=== PATIENT | female | born 1980 | race African-American/Black ===

== ENCOUNTER 2017-06-16 00:59 | Emergency (ER) | payer OTHER ==
--- NOTE | 2017-06-16 01:07 | ER Document Report ---
ED Psych Disorder / Suicide - General Mode of Arrival: Medic Information source: Patient TRAVEL OUTSIDE OF THE U.S. IN LAST 30 DAYS: No <AUNDREAKEESHA Shavon - Last Filed: 06/16/17 01:12> <BRENDAN MALDONADO - Last Filed: 06/17/17 15:30> <VICENTE CARUSO - Last Filed: 06/17/17 17:06> - General Chief Complaint: Psych Problem Stated Complaint: SUICIDAL IDEATION Time Seen by Provider: 06/16/17 01:00 - HPI Notes: 37-year-old female with history of depression presents with worsening depression and suicidal ideation. She had a plan of using a gun but she states she got rid of her gone and is seeking help for this. She says her multiple precipitating factors did not want to discuss this which seems appropriate as she is currently in a hallway bed with a full emergency department. She states she has had prior suicidal attempt. She is usually on sertraline but is not currently on this. She denies any physical problems. Specifically no chest pain cough cold symptoms rhinorrhea sore throat breathing difficulty nausea vomiting diarrhea or other illness. Denies any pain. No suicide attempt at this time has been made. She does admit to drinking beer and did drink some tonight as well. (KEESHA GUILLAUME) - Related Data Allergies/Adverse Reactions: No Known Allergies Allergy (Verified 11/25/11 15:31) Past Medical History - Social History Smoking Status: Current Every Day Smoker Frequency of alcohol use: Occasional Family History: Reviewed & Not Pertinent Past Surgical History: Reports: Hx Appendectomy, Hx Section, Hx Cholecystectomy, Hx Orthopedic Surgery - rt shoulder - Immunizations Hx Diphtheria, Pertussis, Tetanus Vaccination: Yes - 06/2011 <AUNDREAKEESHA Shavon - Last Filed: 06/16/17 01:12> Review of Systems - Review of Systems -: Yes All other systems reviewed and negative <KEESHA GUILLAUME - Last Filed: 06/16/17 01:12> Physical Exam <KEESHA GUILLAUME - Last Filed: 06/16/17 01:12> <BRENDAN MALDONADO - Last Filed: 06/17/17 15:30> <VICENTE CARUSO - Last Filed: 06/17/17 17:06> - Vital signs Vitals: Temp Pulse Resp BP Pulse Ox 98.6 F 96 16 124/71 94 06/16/17 00:59 06/16/17 00:59 06/16/17 00:59 06/16/17 00:59 06/16/17 00:59 Notes: Please see nurse's note (KEESHA GUILLAUME) - Notes Notes: GENERAL: VS as per nursing doc. Well-appearing, well-nourished and in no acute distress. HEAD: Atraumatic, normocephalic EYES: Pupils equal round and reactive to light, extraocular movements intact, sclera anicteric, no conjunctival injection or discharge. ENT: Nares patent, oropharynx clear without exudates, moist mucous membranes. NECK: Normal range of motion, supple without lymphadenopathy. LUNGS: Breath sounds clear to auscultation bilaterally and equal. No wheezes rales or rhonchi. HEART: Regular rate and rhythm without murmurs. Peripheral pulses equal. ABDOMEN: Soft, non-tender. BACK: Normal to inspection EXTREMITIES: Normal appearance without edema. NEUROLOGICAL: Cranial nerves grossly intact. Normal speech. Normal sensory and motor exams. No gross cerebellar abnormalities. PSYCH: Oriented 3. Somewhat monotone speech. Fairly poor eye contact. Appears depressed. Calm, directable. No evidence of hallucinations or delusions. No reported homicidal ideation. Normal thought content. Good insight. Speech is appropriate. SKIN: Warm, dry. No lacerations. (KEESHA GUILLAUME) Course - EKG Interpretation by [facility] EKG shows normal: Sinus rhythm - Rate 96, normal QRS, no significant STT abnormalities. Normal EKG. <KEESHA GUILLAUME - Last Filed: 06/16/17 01:12> - Laboratory Result Diagrams: 06/16/17 01:15 06/16/17 01:15 <BRENDAN MALDONADO - Last Filed: 06/17/17 15:30> - Laboratory Result Diagrams: 06/16/17 01:15 06/16/17 01:15 <VICENTE CARUSO - Last Filed: 06/17/17 17:06> - Vital Signs Vital signs: Temp Pulse Resp BP Pulse Ox 98.1 F 82 20 122/75 100 06/17/17 04:42 06/17/17 04:42 06/17/17 04:42 06/17/17 04:42 06/17/17 04:42 - Laboratory Laboratory results interpreted by me: 06/16/17 06/16/17 01:15 02:13 Sodium 146.6 H Chloride 110 H Urine Blood MODERATE H Salicylates < 1.0 L Acetaminophen < 10 L Discharge <KEESHA GUILLAUME - Last Filed: 06/16/17 01:12> <BRENDAN MALDONADO - Last Filed: 06/17/17 15:30> <VICENTE CARUSO - Last Filed: 06/17/17 17:06> - Discharge Clinical Impression: PTSD (post-traumatic stress disorder) Condition: Stable Disposition: HOME, SELF-CARE Additional Instructions: Post-Traumatic Stress Disorder You seem to have post-traumatic stress disorder (PTSD). PTSD can cause chronic anxiety, sleeping problems, social withdrawal, and drug abuse. It can occur following a traumatic personal experience such as an accident, rape, assault, or of a loved one, or after experiencing a war or natural disaster. Symptoms may be delayed for days or even years. Emotional numbing, the inability to express grief, is usually the earliest sign. There may be apathy or agitation, aggression, and inability to perform ordinary tasks. Often there are frightening nightmares and sudden, intruding memories of the trauma. Panic attacks and feelings of guilt are common. Alcohol and drug use make post- traumatic stress symptoms worse. Medication may be temporarily necessary to combat anxiety, panic attacks, and depression. Medicine should not be considered a "cure." You must deal with the trauma and prepare to go on. Group therapy is often helpful. This helps you "talk through" the problem with others who share your symptoms. We can provide you with an appropriate referral. DEPRESSION: Your evaluation reveals that you have mental depression. While symptoms may be vague, they often include disturbance of sleep, fatigue, loss of appetite , and general loss of interest in life. While depression may be a side effect of drugs, or a reaction to a major change in your life, many cases have no known cause. If depression is acute, and related to a major loss in your life, you can expect it to clear completely with time. If you have been depressed a long time , are prone to repeated bouts of depression or low mood, or have been thinking of suicide, get help. Depression can be treated with anti-depressant medication and counselling. Long-term depression will often take a few weeks to clear, even with appropriate medication. Follow-up care is important. SUICIDAL IDEATION: Suicidal ideation is a common medical term for thoughts about suicide, which may be as detailed as a formulated plan, without the suicidal act itself. Although most people who undergo suicidal ideation do not commit suicide, some go on to make suicide attempts. The range of suicidal ideation varies greatly from fleeting to detailed planning, role playing, and unsuccessful attempts. While thoughts about suicide are common, most people do not carry out serious actions to commit suicide. Based upon your evaluation and discussion with you, we do not believe you are currently at risk to act upon your thoughts of suicide. You have agreed to return to the Emergency Department, at any time , if you feel inclined to act upon your suicidal thoughts. FOLLOW-UP CARE: Please follow-up with your outpatient mental health provider, [facility], on Monday for your continued outpatient mental health services. You have been provided prescriptions for Effexor 37.5 mg twice daily and BuSpar 5 mg twice daily; please take as prescribed. If you experience worsening or a significant change in your symptoms, notify the physician immediately or return to the Emergency Department at any time for re-evaluation. Prescriptions: Buspirone HCl [Buspar 5 mg Tablet] 1 tab PO BID #14 tab Venlafaxine HCl ER [Effexor Xr 37.5 mg Cap.sr] 37.5 mg PO BID #14 cap.sr.24h Forms: Return to School Referrals: [facility] [Provider Group] - 06/19/17
[2017-06-16 01:29] LABS: ABSOLUTE BASOPHILS # (AUTO) 0.1 10^3/uL (0.0-0.2); ABSOLUTE EOSINOPHILS # (AUTO) 0.2 10^3/uL (0.0-0.6); ABSOLUTE LYMPHOCYTES (AUTO) 2.9 10^3/uL (0.5-4.7); ABSOLUTE MONOCYTES (AUTO) 0.6 10^3/uL (0.1-1.4); ABSOLUTE NEUT (AUTO) 4.5 10^3/uL (1.7-8.2); BASOPHILS % (AUTO) 1.1 % (0-2); EOSINOPHILS % (AUTO) 2.6 % (0-6); HEMATOCRIT 44.5 % (36.0-47.0); HEMOGLOBIN 15.2 g/dL (12.0-15.5); LYMPHOCYTES % (AUTO) 34.4 % (13-45); MEAN CORPUSCULAR HEMOGLOBIN 31.3 pg (27.0-33.4); MEAN CORPUSCULAR HGB CONC 34.1 g/dL (32.0-36.0); MEAN CORPUSCULAR VOLUME 92 fl (80-97); MONOCYTES % (AUTO) 7.7 % (3-13); PLATELET COUNT 215 10^3/uL (150-450); RED BLOOD COUNT 4.85 10^6/uL (3.72-5.28); RED CELL DISTRIBUTION WIDTH 13.3 % (11.5-14.0); SEGMENTED NEUTROPHILS % (AUTO) 54.2 % (42-78); TOTAL CELLS COUNTED % (AUTO) 100 %; WHITE BLOOD COUNT 8.3 10^3/uL (4.0-10.5)
[2017-06-16 01:41] LABS: ALANINE AMINOTRANSFERASE 21 U/L (9-52); ALBUMIN 4.5 g/dL (3.5-5.0); ALCOHOL 160 mg/dL (NONE DETECTED); ALKALINE PHOSPHATASE 61 U/L (38-126); ANION GAP 15 (5-19); ASPARTATE AMINO TRANSFERASE 18 U/L (14-36); BILIRUBIN,DIRECT 0.3 mg/dL (0.0-0.4); BILIRUBIN,TOTAL 0.4 mg/dL (0.2-1.3); BLOOD UREA NITROGEN 10 mg/dL (7-20); CALCIUM 9.8 mg/dL (8.4-10.2); CARBON DIOXIDE 22 mmol/L (22-30); CHLORIDE 110 mmol/L (98-107); GLUCOSE 90 mg/dL (75-110); POTASSIUM 3.8 mmol/L (3.6-5.0); SODIUM 146.6 mmol/L (137-145); TOTAL PROTEIN 7.5 g/dL (6.3-8.2)
[2017-06-16 01:42] LABS: ACETAMINOPHEN < 10 ug/mL (10-30); SALICYLATE < 1.0 mg/dL (2.0-20.0)
[2017-06-16 02:50] LABS: APPEARANCE,URINE CLEAR; BILIRUBIN,URINE NEGATIVE (NEGATIVE); COLOR,URINE STRAW; GLUCOSE, URINE NEGATIVE (NEGATIVE); KETONES,URINE NEGATIVE (NEGATIVE); LEUKOCYTE ESTERASE,URINE NEGATIVE (NEGATIVE); NITRITE,URINE NEGATIVE (NEGATIVE); PROTEIN,URINE NEGATIVE (NEGATIVE); URINE SPECIFIC GRAVITY 1.001; UROBILINOGEN,URINE NEGATIVE mg/dL (<2.0)
[2017-06-16 02:56] LABS: URINE AMPHETAMINES SCREEN NEGATIVE; URINE BARBITURATES SCREEN NEGATIVE; URINE BENZODIAZEPINES SCREEN NEGATIVE; URINE COCAINE SCREEN NEGATIVE; URINE MARIJUANA (THC) SCREEN NEGATIVE; URINE METHADONE SCREEN NEGATIVE; URINE PHENCYCLIDINE SCREEN NEGATIVE
--- NOTE | 2017-06-16 09:48 | EKG REPORT ---
SEVERITY:- NORMAL ECG - SINUS RHYTHM : Confirmed by: Emperatriz Miller 16-Jun-2017 09:47:28
[2017-06-16] MEDS: BENZONATATE 100 MG CAPSULE PO PRN ×2 (13:28→20:25)
--- NOTE | 2017-06-16 16:52 | PSYCHOLOGICAL NOTE ---
Psych Note - Psych Note Psych Note: Reason for consult: Suicidal ideation Consent Permissions: Sister, Keri [phone] 37-year-old female with history of depression presents with worsening depression and suicidal ideation. She had a plan of using a gun but she states she got rid of her gone and is seeking help for this. She says her multiple precipitating factors did not want to discuss this which seems appropriate as she is currently in a hallway bed with a full emergency department. She states she has had prior suicidal attempt. She is usually on sertraline but is not currently on this. She denies any physical problems. Patient disclosed she has a "lot going on... I just do not know." She continues state that she wants to get back on her medication because she has been off of it for 2 months. She disclosed that she has court this morning and was concerned "small things just get to me." When asked why she has not been taking her medications she disclosed [facility] I do not know [facility]. " Her last appointment was in February at the local [facility] here in [place]. She states that she really needs to get back on her medication. When asked if she is feeling suicidal she states "not now." Patient was asked when the last time she felt suicidal and she stated "last night...I think it was just a thought." Patient's sister Keri disclosed the patient has diagnosed with PTSD and anxiety. She states that the patient was unable to [facility] and has been off for over a month, but the family just found out yesterday this was happening. Patient was supposed to go to a hearing for nonpayment of rent for her old apartment. She continued to state that in the past she would have always thought that the patient would never had suicidal ideation however yesterday she "failed her assessments... she wrote a note to a coworker and told her not to read it until after she went home from work." She continues state that a coworker immediately opened it and found that it was a suicide note. The coworker contacted Keri to let her know what she read so patient ran to the patient's home. She found the patient sitting on her couch crying. Clinician went back to patient to discuss suicide note. After some silence patient confirmed she wrote the note. She disclosed her plan was to shoot herself but that "the the police confiscated the weapon I think...I don't know where it is...I think they have it." Patient disclosed she is "just tired...I can't do it anymore." Behavioral health team attempted contact [place] [facility]; left messages Patient is alert and orientated to person, place, time and circumstance. Mood is dysphoric with flat affect. Patient endorses suicidal ideation with plans, means and wrote a note. Patient denies homicidal ideation. Delusions are absent behaviors congruent with intact reality based presentation i.e. organized , linear thinking. Eye contact is poor. Conversational speech is slow. Intellectual abilities appear to be within the average range. Attention and concentration is poor. Insight, judgment, impulse control is poor. 309.81 (F43.10) posttraumatic stress disorder per history provided by patient 311 (F32.9) unspecified depressive disorder Impression\\plan: Patient is recommended for IVC. Patient reported suicide note with plans in means. Patient is unable to confirm where the weapon is at this time. Patient will be reevaluated. Dr. Tuttle was consulted and the care management this patient; attending physician is in agreement her conditions and disposition.
[2017-06-16] MEDS: BUSPIRONE HCL 10 MG TABLET PO SCH (17:10)
[2017-06-16] MEDS ORDERED: NICOTINE 14 MG/24 HR PATCH.TD24 TD ONE (18:55)
--- NOTE | 2017-06-16 18:59 | ER Document Report ---
Doctor's Note Notes: 06/16/17 18:56 Initially patient denies suicidal ideation, thinks that if we just restart her medication she will feel better. After mental health clinician called and obtained collaterals on this patient we found out that the patient had actually written a suicide note and intends to shoot herself with a gun to which she already has access. Patient has been placed on involuntary commitment paperwork. Medications will be started in the form of Effexor 37.5 twice daily and BuSpar 5 mg twice daily. This is on the recommendation of the [facility] psychiatrist.
[2017-06-16] MEDS ORDERED: VENLAFAXINE HCL 37.5 MG CAP.SR.24H PO ONE (22:38)
[2017-06-16] MEDS: VENLAFAXINE HCL 37.5 MG CAP.SR.24H PO SCH (22:44)
[2017-06-17] MEDS: BENZONATATE 100 MG CAPSULE PO PRN (10:23)
[2017-06-17] MEDS: VENLAFAXINE HCL 37.5 MG CAP.SR.24H PO SCH (10:23)
[2017-06-17] MEDS: BUSPIRONE HCL 10 MG TABLET PO SCH (10:23)
--- NOTE | 2017-06-17 14:18 | ER Document Report ---
Doctor's Note Notes: 06/17/17 14:17 Rounds: Chart reviewed and patient interviewed. Patient being evaluated for depression and suicidal ideation. Says she does not feel as depressed at this time. Vital signs are all essentially normal. Lab studies were all normal except for a blood alcohol of 160. Patient appears to be medically stable for transfer or discharge. Brian Case MD
--- NOTE | 2017-06-17 15:30 | PSYCHOLOGICAL NOTE ---
Psych Note - Psych Note Psych Note: Reason for consult: Suicidal ideation Consent Permissions: Sister, Keri [phone] 37-year-old female with history of depression presents with worsening depression and suicidal ideation. She had a plan of using a gun but she states she got rid of her gone and is seeking help for this. She says her multiple precipitating factors did not want to discuss this which seems appropriate as she is currently in a hallway bed with a full emergency department. She states she has had prior suicidal attempt. She is usually on sertraline but is not currently on this. She denies any physical problems. Patient disclosed she is feeling surprisingly much better today. She states that she does not even have cravings to smoke. Patient inquires on plan that she would like to go to [place] with her family. She also stated that she just started a new job and cannot miss work on Monday. Patient stated she plans to walk into the local [facility] on Monday to continue services. Clinician and patient discussed the need to therapeutic intervention in addition to medication management to strengthen coping skills. Patient is alert and orientated to person, place, time and circumstance. Mood is euthymic with congruent affect. Patient denies suicidal ideation; patient does not have access to a weapon. Patient denies homicidal ideation. Delusions are absent behaviors congruent with intact reality based presentation i.e. organized, linear thinking. Eye contact is well-maintained. Conversational speech is within normal rate, tone and prosody. Intellectual abilities appear to be within the average range. Attention and concentration is good. Insight, judgment, impulse control is fair. 309.81 (F43.10) posttraumatic stress disorder per history provided by patient 311 (F32.9) unspecified depressive disorder Impression\plan: Patient is recommended for rescind of IVC and is considered psychologically clear. Patient's sister Keri conducted thorough search of patient's home and car; she confirms there are no weapons. Further discussion with the patient suggested it was highly unlikely she had access to a weapon as she provided conflicting stories requiring access to the weapon. Patient is recommended to follow up with therapeutic intervention in addition to medication management to strengthen coping skills. Patient's sister, Keri agrees to be part of discharge plan (i.e. no access to medications pr weapons and follow through with mental health services. Dr. Tuttle was consulted and the care management this patient; attending physician is in agreement her conditions and disposition.
[2017-06-17 17:24] VITALS: BP 136/68
== END 2017-06-17 17:24 | disposition home or self-care (01) ==
LOC: ER 00:59
DX: F43.10 Post-traumatic stress disorder, unspecified (principal); R45.851 Suicidal ideations; F32.9 Major depressive disorder, single episode, unspecified; F17.200 Nicotine dependence, unspecified, uncomplicated; Z90.49 Acquired absence of other specified parts of digestive tract
CPT/HCPCS: 93005; 99285; 36415; 80307 ×4; 84703; 85025; 80053; 81001; 93010; J3490 ×2

== ENCOUNTER 2018-01-21 09:14 | Inpatient (IN) | payer OTHER ==
[2018-01-21] MEDS ORDERED: NORMAL SALINE 1000 ML 1,000 ML IV ONE (09:43)
--- NOTE | 2018-01-21 09:46 | ER Document Report ---
ED Medical Screen (RME) - General Chief Complaint: Psych Problem Stated Complaint: POSSIBLE OVERDOSE Time Seen by Provider: 01/21/18 09:42 Mode of Arrival: Ambulatory Information source: Patient TRAVEL OUTSIDE OF THE [place] IN LAST 30 DAYS: No - HPI Patient complains to provider of: overdose Onset: Other - 37-year-old female who presents for evaluation ingestion of a large quantity of Motrin p.m. which is seems to have included acetaminophen, this was a suicide attempt because her life is overwhelming at this time. She does have a history of PTSD but is not currently treated for any health problems. She has never tried to harm her self in the past but has threatened harm self in the past. She denies any history of substance abuse and alcohol. - Related Data Allergies/Adverse Reactions: No Known Allergies Allergy (Verified 11/25/11 15:31) Past Medical History - Social History Chew tobacco use (# tins/day): No Frequency of alcohol use: weekends Drug Abuse: None Renal/ Medical History: Denies: Hx Peritoneal Dialysis Psychiatric Medical History: Reports: Hx Depression - & anxiety Past Surgical History: Reports: Hx Appendectomy, Hx Section, Hx Cholecystectomy, Hx Orthopedic Surgery - rt shoulder - Immunizations Hx Diphtheria, Pertussis, Tetanus Vaccination: Yes - 06/2011 Physical Exam - Vital signs Vitals: Temp Pulse Resp BP Pulse Ox 99.2 F 101 H 20 139/88 H 98 01/21/18 09:20 01/21/18 09:20 01/21/18 09:20 01/21/18 09:20 01/21/18 09:20 Course - Re-evaluation Re-evalutation: 01/21/18 09:45 This 37-year-old female presents for evaluation of nighttime medicine which likely includes acetaminophen. We will plan to obtain screening labs including acetaminophen level, alcohol level, LFTs. Patient is approximately 10 hours postingestion, and concerned that this may represent an hepatotoxic event. This patient also is suicidal attempted to harm her self last night as such believe she would benefit likely from commitment placement. We will plan for IVC. Patient will be evaluated through the main emergency department. - Vital Signs Vital signs: Temp Pulse Resp BP Pulse Ox 99.2 F 101 H 20 139/88 H 98 01/21/18 09:20 01/21/18 09:20 01/21/18 09:20 01/21/18 09:20 01/21/18 09:20
[2018-01-21] MEDS ORDERED: ONDANSETRON HCL INJ/PF 4 MG/2 ML SDV IV ONE (09:58)
[2018-01-21] MEDS ORDERED: ACETYLCYSTEINE INJ 6000 MG/30 ML IV ONE ×3 (10:15→13:45)
[2018-01-21 10:42] LABS: INTERNATIONAL RATION (INR) 1.11; PROTHROMBIN TIME 14.9 SEC (11.4-15.4)
[2018-01-21 10:47] LABS: ABSOLUTE BASOPHILS # (AUTO) 0.1 10^3/uL (0.0-0.2); ABSOLUTE LYMPHOCYTES (AUTO) 1.5 10^3/uL (0.5-4.7); ABSOLUTE MONOCYTES (AUTO) 0.3 10^3/uL (0.1-1.4); ABSOLUTE NEUT (AUTO) 5.7 10^3/uL (1.7-8.2); APPEARANCE,URINE SLIGHTLY-CLOUDY; BASOPHILS % (AUTO) 0.7 % (0-2); BILIRUBIN,URINE NEGATIVE (NEGATIVE); COLOR,URINE YELLOW; GLUCOSE, URINE NEGATIVE (NEGATIVE); HEMATOCRIT 46.8 % (36.0-47.0); HEMOGLOBIN 16.1 g/dL (12.0-15.5); KETONES,URINE NEGATIVE (NEGATIVE); LEUKOCYTE ESTERASE,URINE NEGATIVE (NEGATIVE); LYMPHOCYTES % (AUTO) 19.7 % (13-45); MEAN CORPUSCULAR HEMOGLOBIN 32.1 pg (27.0-33.4); MEAN CORPUSCULAR HGB CONC 34.5 g/dL (32.0-36.0); MEAN CORPUSCULAR VOLUME 93 fl (80-97); MONOCYTES % (AUTO) 3.5 % (3-13); NITRITE,URINE NEGATIVE (NEGATIVE); PLATELET COUNT 299 10^3/uL (150-450); PROTEIN,URINE 30 mg/dL (NEGATIVE); RED BLOOD COUNT 5.03 10^6/uL (3.72-5.28); RED CELL DISTRIBUTION WIDTH 13.7 % (11.5-14.0); SEGMENTED NEUTROPHILS % (AUTO) 76.1 % (42-78); TOTAL CELLS COUNTED % (AUTO) 100 %; URINE SPECIFIC GRAVITY 1.049; UROBILINOGEN,URINE NEGATIVE mg/dL (<2.0); WHITE BLOOD COUNT 7.6 10^3/uL (4.0-10.5)
[2018-01-21 11:00] LABS: URINE AMPHETAMINES SCREEN NEGATIVE; URINE BARBITURATES SCREEN NEGATIVE; URINE BENZODIAZEPINES SCREEN NEGATIVE; URINE COCAINE SCREEN NEGATIVE; URINE MARIJUANA (THC) SCREEN NEGATIVE; URINE METHADONE SCREEN NEGATIVE; URINE PHENCYCLIDINE SCREEN NEGATIVE
[2018-01-21 11:07] LABS: ACETAMINOPHEN 38 ug/mL (10-30); ALANINE AMINOTRANSFERASE 59 U/L (9-52); ALBUMIN 4.5 g/dL (3.5-5.0); ALKALINE PHOSPHATASE 76 U/L (38-126); ANION GAP 16 (5-19); ASPARTATE AMINO TRANSFERASE 89 U/L (14-36); BILIRUBIN,DIRECT 0.4 mg/dL (0.0-0.4); BILIRUBIN,TOTAL 0.5 mg/dL (0.2-1.3); BLOOD UREA NITROGEN 9 mg/dL (7-20); CALCIUM 9.6 mg/dL (8.4-10.2); CARBON DIOXIDE 20 mmol/L (22-30); CHLORIDE 104 mmol/L (98-107); GLUCOSE 164 mg/dL (75-110); LIPASE 40.6 U/L (23-300); POTASSIUM 4.2 mmol/L (3.6-5.0); SODIUM 140.2 mmol/L (137-145); TOTAL PROTEIN 8.2 g/dL (6.3-8.2)
[2018-01-21 11:08] LABS: ALCOHOL < 10 mg/dL (NONE DETECTED); SALICYLATE < 1.0 mg/dL (2.0-20.0)
--- NOTE | 2018-01-21 12:41 | ER Document Report ---
ED General - General Chief Complaint: Psych Problem Stated Complaint: POSSIBLE OVERDOSE Time Seen by Provider: 01/21/18 09:42 Mode of Arrival: Ambulatory TRAVEL OUTSIDE OF THE [place] IN LAST 30 DAYS: No - HPI Patient complains to provider of: Possible overdose Notes: Patient coming in for evaluation of a suicide attempt possible overdose. Patient states she took a large amount of medications unable to exactly identify the medication possibly Advil PM versus Tylenol PM last night at 10: 00. Patient is unaware of how many tablets she took the state that she had an entire bottle of 50 tablets and afterwards only 5 or less. Patient apparently has been going to multiple issues at home loss of her job increased stress reason for her suicide attempt. Patient denies any suicide attempt in the past. Patient denies any fevers chills nausea vomiting or diarrhea. - Related Data Allergies/Adverse Reactions: No Known Allergies Allergy (Verified 01/21/18 09:46) Past Medical History - General Information source: Patient - Social History Smoking Status: Current Every Day Smoker Chew tobacco use (# tins/day): No Frequency of alcohol use: weekends Drug Abuse: None Family History: Reviewed & Not Pertinent Patient has suicidal ideation: Yes Patient has homicidal ideation: No Renal/ Medical History: Denies: Hx Peritoneal Dialysis Psychiatric Medical History: Reports: Hx Depression - & anxiety Past Surgical History: Reports: Hx Appendectomy, Hx Section, Hx Cholecystectomy, Hx Orthopedic Surgery - rt shoulder - Immunizations Hx Diphtheria, Pertussis, Tetanus Vaccination: Yes - 06/2011 Review of Systems - Review of Systems Constitutional: No symptoms reported EENT: No symptoms reported Cardiovascular: No symptoms reported Respiratory: No symptoms reported Gastrointestinal: No symptoms reported Genitourinary: No symptoms reported Female Genitourinary: No symptoms reported Musculoskeletal: No symptoms reported Skin: No symptoms reported Hematologic/Lymphatic: No symptoms reported Neurological/Psychological: Suicidal ideation -: Yes All other systems reviewed and negative Physical Exam - Vital signs Vitals: Temp Pulse Resp BP Pulse Ox 99.2 F 101 H 20 139/88 H 98 01/21/18 09:20 01/21/18 09:20 01/21/18 09:20 01/21/18 09:20 01/21/18 09:20 Interpretation: Normal - General General appearance: Appears well, Alert - HEENT Head: Normocephalic, Atraumatic Eyes: Normal Pupils: PERRL - Respiratory Respiratory status: No respiratory distress Chest status: Nontender Breath sounds: Normal Chest palpation: Normal - Cardiovascular Rhythm: Regular Heart sounds: Normal auscultation Murmur: No - Abdominal Inspection: Normal Distension: No distension Bowel sounds: Normal Tenderness: Nontender Organomegaly: No organomegaly - Back Back: Normal, Nontender - Extremities General upper extremity: Normal inspection, Nontender, Normal color, Normal ROM , Normal temperature General lower extremity: Normal inspection, Nontender, Normal color, Normal ROM , Normal temperature, Normal weight bearing. No: Wayne's sign - Neurological Neuro grossly intact: Yes Cognition: Normal Orientation: AAOx4 Brenda Coma Scale Eye Opening: Spontaneous Corrigan Coma Scale Verbal: Oriented Brenda Coma Scale Motor: Obeys Commands Brenda Coma Scale Total: 15 Speech: Normal Motor strength normal: LUE, RUE, LLE, RLE Sensory: Normal - Psychological Associated symptoms: Normal affect, Normal mood - Skin Skin Temperature: Warm Skin Moisture: Dry Skin Color: Normal Course - Re-evaluation Re-evalutation: 01/21/18 12:39 Discussed laboratory results with poison control. Recommend at this time as the patient does have Tylenol with her system and slightly elevated liver function tests and the patient remained on IV acetylcysteine for the next 23 hours. Recommended dose was 43 mL/h. Recommended repeat laboratory studies at 9 AM tomorrow including CBC Chem-12 PT/INR and another Tylenol level. We will place patient on IVC paperwork as it patient did overdose attempt of suicide. Discussed case with Dr. Mckeon will admit the patient for further observation 01/21/18 15:11 Nursing staff has contacted poison control and [facility] pharmacy. The acetylcysteine policy from poison control and the recommendations were faxed to us. We have given this information to our pharmacy staff however we are unable to comply have been told will have to go for her on acetylcysteine protocol. - Vital Signs Vital signs: Temp Pulse Resp BP Pulse Ox 99.2 F 101 H 19 146/102 H 98 01/21/18 09:20 01/21/18 09:20 01/21/18 12:14 01/21/18 12:14 01/21/18 12:14 - Laboratory Result Diagrams: 01/21/18 10:00 01/21/18 10:00 Laboratory results interpreted by me: 08/01/21/18 01/21/18 10:00 10:00 10:00 Hgb 16.1 H Carbon Dioxide 20 L Glucose 164 H AST 89 H ALT 59 H Urine Protein 30 H Salicylates < 1.0 L Acetaminophen 38 H Discharge - Discharge Clinical Impression: Suicide attempt, Possible overdose Tylenol Condition: Good Disposition: ADMITTED INPATIENT [facility]
[2018-01-21] MEDS ORDERED: ACETYLCYSTEINE IV ONE ×2 (14:30→18:30)
[2018-01-21] MEDS ORDERED: DEXTROSE 5% IV ONE ×2 (14:30→18:30)
[2018-01-21] MEDS ORDERED: WATER IV ONE ×2 (14:30→18:30)
[2018-01-21] MEDS: RINGERS SOLUTION,LACTATED 1,000 ML IV PRN (15:00)
--- NOTE | 2018-01-21 16:17 | PSYCHOLOGICAL NOTE ---
Psych Note - Psych Note Psych Note: Reason for Consult: Possible overdose Pt arrived to room 17 at this time. Pt states she took a bottle of tylenol PM but unsure of amount. Pt states there were 5 left in bottle. Pt asked if she wanted to hurt herself and she just shrugged her shoulders. When asked if pt has a hx of SI or HI pt denies. Pt states she has a daughter that she lives for and has thoughts at time but never tries it. Pt states she has increased stress in her life right now. Pt is awake and oriented x4. Pt on patient monitor. Pt has sitter present outside room. Met with patient and she states that she took some over the counter medication but does not know what it was. When this Clinician asked her why she took the pills, patient stared blankly with no response. Clinician resumed with other questions and then asked the patient again why she took the pills and she did not respond. Patient did not respond to the question, "Do you feel like you will hurt yourself?", just a blank stare. Patient reports that she has PTSD but not able to get to her appointments at the [facility] because the call center's schedule is so rigid. Patient did report that she was fired from [employer] on December 29, 2017 but that she got a new job at [employer]. Patient states that she does not feel that job will last but could not give a reason why. Patient has a 17 year old daughter that lives with her. Patient stated that she was stressed over not having enough food so this Clinician gave her a list of food cramer in the local area. Patient is alert and makes good eye contact. Patient would not respond to if she was suicidal or why she took the pills. Mood is very guarded with giving information to this Clinician. When asked a question patient has a delayed response, if she will answer at all. Conversational speech is limited. Intellectual abilities appear to be within average range. Insight, judgment, impulse control poor. Diagnosis: 309.81 (F43.10) Post traumatic stress disorder per history provided by patient 311 (F32.9) unspecified depressive disorder Impression/Plan: Patient is recommended for IVC. Patient presented to the Emergency Department with possible overdose. Patient was not able to clearly articulate which medication she consumed. Patient has previous history with anxiety and suicidal ideation. Patient does not deny that she is currently suicidal. Dr. Tuttle was consulted and the care and management of this patient ; attending physician is in agreement with recommendations and disposition.
--- NOTE | 2018-01-21 17:53 | PDOC H&P ---
History of Present Illness Admission Date/PCP: 01/21/18 12:38 Patient complains of: Suicidality. Took an overdose of tylenol pm. History of Present Illness: JERILYN SALAS is a 37 year old female Who took an unknown, but large, amount of tylenol PM last night in an attempt to kill herself at about 10:00 pm last night.. This morning in the ED her Tylenol level was 38 and her LFT's were slightly elevated. The patient has a very flat affect and is largely non- communicative. Past Medical History Psychiatric Medical History: Reports: Depression - & anxiety Past Surgical History Past Surgical History: Reports: Appendectomy, Section, Cholecystectomy , Orthopedic Surgery - rt shoulder Social History Smoking Status: Current Every Day Smoker Family History Family History: Reviewed & Not Pertinent Parental Family History Reviewed: Yes Children Family History Reviewed: Yes Sibling(s) Family History Reviewed.: Yes Medication/Allergy Home Medications: No Home Medications 01/21/18 Allergies/Adverse Reactions: No Known Allergies Allergy (Verified 01/21/18 09:46) Review of Systems ROS unobtainable: Other - The patient is laconic and not particularly communicative. Physical Exam Vital Signs: Temp Pulse Resp BP Pulse Ox 99.2 F 101 H 20 138/94 H 98 01/21/18 09:20 01/21/18 09:20 01/21/18 17:21 01/21/18 17:21 01/21/18 17:21 General appearance: PRESENT: no acute distress, other - Laconic. Will follow commands, but does not answer questions. Head exam: PRESENT: atraumatic, normocephalic Eye exam: PRESENT: EOMI, PERRLA. ABSENT: conjunctival injection, nystagmus, scleral icterus Mouth exam: PRESENT: dry mucosa, neck supple, tongue midline. ABSENT: laceration Throat exam: ABSENT: post pharyngeal erythema, tonsillar erythema, tonsillar exudate, tonsillogmegaly Neck exam: ABSENT: JVD, lymphadenopathy, meningismus, thyromegaly, tracheal deviation Respiratory exam: PRESENT: other - No increased work of breathing.. ABSENT: rales, rhonchi, wheezes Pulses: PRESENT: normal radial pulses, normal dorsalis pedis pul GI/Abdominal exam: PRESENT: normal bowel sounds, soft. ABSENT: hernia, mass, tenderness Rectal exam: PRESENT: deferred Neurological exam: PRESENT: alert, awake, CN II-XII grossly intact. ABSENT: motor sensory deficit Psychiatric exam: PRESENT: depressed, flat affect, unusual affect Skin exam: PRESENT: dry, intact, warm Assessment & Plan - Diagnosis (1) Tylenol overdose Qualifiers: Encounter type: initial encounter Injury intent: intentional self-harm Qualified Code(s): T39.1X2A - Poisoning by 4-Aminophenol derivatives, intentional self-harm, initial encounter Is this a current diagnosis for this admission?: Yes Plan: The patient states that she took the overdose at 10:00 pm. Her tylenol level this morning was elevated at 38. Her LFT's were slightly elevated. She has been started on the NAC protocol per the instructions of poison control. (2) Elevated LFTs Is this a current diagnosis for this admission?: Yes Plan: Monitor. NAC protocol. (3) Depression Qualifiers: Depression Type: major depressive disorder Major depression recurrence: unspecified whether recurrent Active/Remission status: currently active Major depression episode severity: severe Is this a current diagnosis for this admission?: Yes Plan: Psychiatry has been consulted. (4) Suicide attempt Is this a current diagnosis for this admission?: Yes Plan: The patient admits that this was an attempt to kill herself. Psychiatry has been consulted and the patient has been IVC'd. - Time Time Spent: 50 to 70 Minutes Medications reviewed and adjusted accordingly: Yes - Inpatient Certification Based on my medical assessment, after consideration of the patient's comorbidities, presenting symptoms, or acuity I expect that the services needed warrant INPATIENT care.: Yes I certify that my determination is in accordance with my understanding of Medicare's requirements for reasonable and necessary INPATIENT services [42 CFR 412.3e].: Yes Medical Necessity: Need Close Monitoring Due to Risk of Patient Decompensation, Risk of Complication if Not Cared For in Hospital, Risk of Diagnosis Which Will Require Inpatient Eval/Care/Monitoring
--- NOTE | 2018-01-22 08:13 | EKG REPORT ---
SEVERITY:- ABNORMAL ECG - ACCELERATED JUNCTIONAL RHYTHM BORDERLINE T ABNORMALITIES, ANTERIOR LEADS : Confirmed by: Timbo Funk MD 22-Jan-2018 08:11:08
[2018-01-22] MEDS ORDERED: ONDANSETRON HCL INJ/PF 4 MG/2 ML SDV ONE (08:35)
[2018-01-22] MEDS: RINGERS SOLUTION,LACTATED 1,000 ML IV PRN (08:39)
[2018-01-22] MEDS: ONDANSETRON HCL INJ/PF 4 MG/2 ML SDV IV PRN ×2 (08:55→17:48)
[2018-01-22 10:26] LABS: ALBUMIN 3.5 g/dL (3.5-5.0); ANION GAP 9 (5-19); BILIRUBIN,DIRECT 0.4 mg/dL (0.0-0.4); BILIRUBIN,TOTAL 0.8 mg/dL (0.2-1.3); CALCIUM 8.9 mg/dL (8.4-10.2); CARBON DIOXIDE 24 mmol/L (22-30); CHLORIDE 106 mmol/L (98-107); GLUCOSE 118 mg/dL (75-110); SODIUM 139.4 mmol/L (137-145); TOTAL PROTEIN 6.8 g/dL (6.3-8.2)
[2018-01-22 10:28] LABS: BLOOD UREA NITROGEN 5 mg/dL (7-20); POTASSIUM 4.5 mmol/L (3.6-5.0)
[2018-01-22 10:29] LABS: ALANINE AMINOTRANSFERASE 399 U/L (9-52); ALKALINE PHOSPHATASE 39 U/L (38-126); ASPARTATE AMINO TRANSFERASE 555 U/L (14-36)
[2018-01-22 11:58] LABS: PROTHROMBIN TIME 16.8 SEC (11.4-15.4)
[2018-01-22] MEDS ORDERED: WATER IV ONE ×2 (13:00)
[2018-01-22] MEDS ORDERED: ACETYLCYSTEINE IV ONE ×2 (13:00)
[2018-01-22] MEDS ORDERED: DEXTROSE 5% IV ONE ×2 (13:00)
[2018-01-22] MEDS: ENOXAPARIN SODIUM INJ 40 MG/0.4 ML DISP.SYRIN SUBCUT SCH (13:46)
--- NOTE | 2018-01-22 16:22 | PSYCHOLOGICAL NOTE ---
Psych Note - Psych Note Psych Note: Reason for Consult: overdose COnsent permissions: SisterKeri [phone] Presents to ER, A&Ox4, with concern for SI and overdose attempt. Reports she took unknown amount of sleep aid, "its like advil PM" and drank 2 beers. Reports SI and depression last night, denying SI at this time. Patient disclosed that she has had "financial issues." She is unable or unwilling to identify exact trigger stating; "I think it was the money thing." She confirms she receives services from the [facility] but has not been to see them since about July because they moved and she does not know where they are located. She continued to disclose that she stopped taking her medications in September because she "felt good..I thought I didn't need them anymore." She confirms this was not directed from her mental health provider. She reports she is glad she is alive and that she got scared because her overdose; " I don't every want to do that again." Patient had difficulty provided a consent permission and changed her mind numerous times on who could be contacted; she ultimately decided on her sister. Patient is alert and orientated to person, place, time and circumstance. Mood is dysphoric with flat affect. Patient presents after intentional overdose on Tylenol. Patient denies homicidal ideation. Delusions are absent behaviors congruent with intact reality based presentation i.e. organized, linear thinking. Eye contact is fair. Conversational speech is slow. Intellectual abilities appear to be within the average range. Attention and concentration is poor. Insight, judgment, impulse control is poor. Diagnosis: 309.81 (F43.10) Post traumatic stress disorder per history provided by patient 311 (F32.9) unspecified depressive disorder Impression/Plan: Patient is recommended for continued IVC. Patient presented to the Emergency Department with Tylenol overdose. Patient has previous history with anxiety and suicidal ideation. Patient reports she stopped taking her medications (not recommended or monitored by her provider) in September because she was feeling better. Patient is unable or unwilling to identify trigger only stating she has financial stressors. During evaluation patient was having difficulties identifying support network and changed her mind on consent permissions multiple times. Dr. Tuttle was consulted and the care and management of this patient; attending physician is in agreement with recommendations and disposition.
[2018-01-22] MEDS ORDERED: MORPHINE SULFATE 10 MG/ML INJ IV ONE (17:56)
[2018-01-23] MEDS ORDERED: TRAMADOL HCL 50 MG TABLET PO PRN (01:32)
[2018-01-23] MEDS ORDERED: TRAMADOL HCL 50 MG TABLET ONE (01:32)
[2018-01-23] MEDS ORDERED: LIDOCAINE 5% (700 MG) TRANSDERMAL ADH..PATCH ONE (01:50)
[2018-01-23 06:58] LABS: ALBUMIN 3.5 g/dL (3.5-5.0); ALKALINE PHOSPHATASE 35 U/L (38-126); ANION GAP 9 (5-19); BILIRUBIN,DIRECT 0.4 mg/dL (0.0-0.4); BILIRUBIN,TOTAL 0.9 mg/dL (0.2-1.3); BLOOD UREA NITROGEN 4 mg/dL (7-20); CALCIUM 9.2 mg/dL (8.4-10.2); CARBON DIOXIDE 26 mmol/L (22-30); CHLORIDE 105 mmol/L (98-107); GLUCOSE 107 mg/dL (75-110); TOTAL PROTEIN 6.7 g/dL (6.3-8.2)
[2018-01-23 07:01] LABS: INTERNATIONAL RATION (INR) 1.25; PROTHROMBIN TIME 16.3 SEC (11.4-15.4)
[2018-01-23 07:02] LABS: PARTIAL THROMBOPLASTIN TIME 33.4 SEC (23.5-35.8)
[2018-01-23 07:11] LABS: ALANINE AMINOTRANSFERASE 1189 U/L (9-52); ASPARTATE AMINO TRANSFERASE 1322 U/L (14-36)
--- NOTE | 2018-01-23 07:15 | PDOC PROGRESS REPORT ---
Subjective Progress Note for:: 01/22/18 Subjective:: The patient is complaining of nausea as well as some right upper quadrant pain. Reason For Visit: SUICIDE ATTEMPT,TYLENOL PM OVERDOSE WITH ELEVATED Physical Exam Vital Signs: Temp Pulse Resp BP Pulse Ox 98.6 F 101 H 23 H 146/112 H 97 01/23/18 05:40 01/22/18 23:24 01/23/18 06:06 01/23/18 06:06 01/23/18 06:05 Intake & Output 01/22/18 01/23/18 01/24/18 06:59 06:59 06:59 Intake Total 1500 1000 Output Total 800 Balance 1500 200 Weight 86.9 kg General appearance: PRESENT: no acute distress, cooperative Respiratory exam: PRESENT: other - No increased work of breathing.. ABSENT: rales, rhonchi, tachypnea, wheezes Cardiovascular exam: PRESENT: RRR. ABSENT: gallop, rubs, systolic murmur GI/Abdominal exam: PRESENT: soft, tenderness - Right upper quadrant., other. ABSENT: hernia, mass, organolmegaly Extremities exam: ABSENT: clubbing, pedal edema, tenderness Musculoskeletal exam: PRESENT: normal inspection. ABSENT: deformity, dislocation, tenderness Neurological exam: PRESENT: alert, awake, oriented to person, oriented to place , oriented to time, oriented to situation, CN II-XII grossly intact. ABSENT: motor sensory deficit Skin exam: PRESENT: dry, intact, warm Results Laboratory Results: 01/22/18 01/22/18 07:15 09:49 Sodium Cancelled 139.4 Potassium Cancelled 4.5 Chloride Cancelled 106 Carbon Dioxide Cancelled 24 Anion Gap Cancelled 9 BUN Cancelled 5 L Creatinine Cancelled 0.60 Est GFR ( Amer) Cancelled > 60 Est GFR (Non-Af Amer) Cancelled > 60 Glucose Cancelled 118 H Calcium Cancelled 8.9 Total Bilirubin Cancelled 0.8 AST Cancelled 555 H ALT Cancelled 399 H Alkaline Phosphatase Cancelled 39 Total Protein Cancelled 6.8 Albumin Cancelled 3.5 01/22/18 09:49 Sodium 139.4 Potassium 4.5 Chloride 106 Carbon Dioxide 24 Anion Gap 9 BUN 5 L Creatinine 0.60 Est GFR ( Amer) > 60 Est GFR (Non-Af Amer) > 60 Glucose 118 H Calcium 8.9 Total Bilirubin 0.8 Direct Bilirubin 0.4 AST 555 H ALT 399 H Alkaline Phosphatase 39 Total Protein 6.8 Albumin 3.5 Assessment & Plan - Diagnosis (1) Tylenol overdose Qualifiers: Encounter type: initial encounter Injury intent: intentional self-harm Qualified Code(s): T39.1X2A - Poisoning by 4-Aminophenol derivatives, intentional self-harm, initial encounter Is this a current diagnosis for this admission?: Yes Plan: The patient's LFT are greatly increased this morning. I have discussed the patient with poison control. Yesterday when the patient was started on NAC protocol, the ED used a protocol that they commonly use, and not the higher dosed protocol recommended by poison control. I have asked our pharmacy to talk with poison control and to get the patient on the correct protocol. The patient will need to stay on the NAC protocol for an additional 24 hours. LFT's will be monitored. (2) Elevated LFTs Is this a current diagnosis for this admission?: Yes Plan: The patient's LFT are greatly increased this morning. I have discussed the patient with poison control. Yesterday when the patient was started on NAC protocol, the ED used a protocol that they commonly use, and not the higher dosed protocol recommended by poison control. I have asked our pharmacy to talk with poison control and to get the patient on the correct protocol. The patient will need to stay on the NAC protocol for an additional 24 hours. LFT's will be monitored. (3) Depression Qualifiers: Depression Type: major depressive disorder Major depression recurrence: unspecified whether recurrent Active/Remission status: currently active Major depression episode severity: severe Is this a current diagnosis for this admission?: Yes (4) Suicide attempt Is this a current diagnosis for this admission?: Yes Plan: The patient admits that this was an attempt to kill herself. Psychiatry has been consulted and the patient has been IVC'd. She will require inpatient psychiatric treatment. - Time Time Spent with patient: 35 or more minutes Medications reviewed and adjusted accordingly: Yes Anticipated discharge: Other
[2018-01-23] MEDS ORDERED: DIPHENHYDRAMINE HCL 25 MG CAPSULE ONE (10:38)
[2018-01-23] MEDS: LIDOCAINE 5% (700 MG) TRANSDERMAL ADH..PATCH TP SCH (10:39)
[2018-01-23] MEDS: ENOXAPARIN SODIUM INJ 40 MG/0.4 ML DISP.SYRIN SUBCUT SCH (10:40)
[2018-01-23] MEDS ORDERED: DEXTROSE 5% IV ONE ×2 (15:00)
[2018-01-23] MEDS ORDERED: WATER IV ONE ×2 (15:00)
[2018-01-23] MEDS ORDERED: ACETYLCYSTEINE IV ONE ×2 (15:00)
--- NOTE | 2018-01-23 15:16 | PDOC PROGRESS REPORT ---
Subjective Progress Note for:: 01/23/18 Subjective:: This is a 37 years old black female patient presented after she overdosed herself with Tylenol with suicidal intention. She denies past medical history of depression and she is to be on antidepressant medication but she stops taking by her own decision. Patient is being managed with IV fluids and acetylcysteine. Her liver enzymes markedly increased in comparison to yesterday AST was yesterday 555 today it is 1322 and her inability is 399 and today it is 1189. Patient is under IVC. Reason For Visit: SUICIDE ATTEMPT,TYLENOL PM OVERDOSE WITH ELEVATED Physical Exam Vital Signs: Temp Pulse Resp BP Pulse Ox 98.8 F 98 23 H 115/85 98 01/23/18 12:00 01/23/18 12:00 01/23/18 12:00 01/23/18 12:00 01/23/18 12:00 Intake & Output 01/22/18 01/23/18 01/24/18 06:59 06:59 06:59 Intake Total 1500 1000 1300 Output Total 800 500 Balance 1500 200 800 Weight 86.9 kg General appearance: PRESENT: no acute distress, well-developed, well-nourished Head exam: PRESENT: atraumatic, normocephalic Eye exam: PRESENT: conjunctiva pink, EOMI, PERRLA. ABSENT: scleral icterus Ear exam: PRESENT: normal external ear exam Mouth exam: PRESENT: moist, tongue midline Neck exam: ABSENT: carotid bruit, JVD, lymphadenopathy, thyromegaly Respiratory exam: PRESENT: clear to auscultation margi. ABSENT: rales, rhonchi, wheezes Cardiovascular exam: PRESENT: RRR. ABSENT: diastolic murmur, rubs, systolic murmur Pulses: PRESENT: normal dorsalis pedis pul Vascular exam: PRESENT: normal capillary refill GI/Abdominal exam: PRESENT: normal bowel sounds, soft. ABSENT: distended, guarding, mass, organolmegaly, rebound, tenderness Rectal exam: PRESENT: deferred Extremities exam: PRESENT: full ROM. ABSENT: calf tenderness, clubbing, pedal edema Neurological exam: PRESENT: alert, awake, oriented to person, oriented to place , oriented to time, oriented to situation, CN II-XII grossly intact. ABSENT: motor sensory deficit Psychiatric exam: PRESENT: appropriate affect, normal mood. ABSENT: homicidal ideation, suicidal ideation Skin exam: PRESENT: dry, intact, warm. ABSENT: cyanosis, rash Results Laboratory Results: 01/23/18 06:32 01/23/18 06:32 Sodium 140.0 Potassium 4.0 Chloride 105 Carbon Dioxide 26 Anion Gap 9 BUN 4 L Creatinine 0.53 Est GFR ( Amer) > 60 Est GFR (Non-Af Amer) > 60 Glucose 107 Calcium 9.2 Magnesium 1.8 Total Bilirubin 0.9 AST 1322 H ALT 1189 H Alkaline Phosphatase 35 L Total Protein 6.7 Albumin 3.5 Assessment & Plan - Diagnosis (1) Tylenol overdose with suicidal intention Is this a current diagnosis for this admission?: Yes Plan: Gentle hydration and acetylcysteine (2) Drug-induced hepatitis Is this a current diagnosis for this admission?: Yes Plan: Due to Tylenol overdose. Management as #1 (3) Depression Qualifiers: Depression Type: major depressive disorder Major depression recurrence: unspecified whether recurrent Active/Remission status: currently active Major depression episode severity: severe Is this a current diagnosis for this admission?: Yes Plan: Management per psych.
[2018-01-23] MEDS: RINGERS SOLUTION,LACTATED 1,000 ML IV PRN (16:49)
--- NOTE | 2018-01-23 17:02 | PSYCHOLOGICAL NOTE ---
Psych Note - Psych Note Psych Note: Reason for Consult: overdose Consent permissions: Mother, Iram, Presents to ER, A&Ox4, with concern for SI and overdose attempt. Reports she took unknown amount of sleep aid, "its like advil PM" and drank 2 beers. Reports SI and depression last night, denying SI at this time. Clinician conducted check in with patient Patient disclosed wanting to move to live with her mother and provided contact information and consent to speak with her. She disclosed that she has been under financial stress for a while but can't provided any specific trigger. She disclosed that she does not want Keri called because they have not spoken in months; "she is not my real sister, we were just real close...but not right now." She would not go into detail about why she is no longer speaking to her friend Keri. Diagnosis: 309.81 (F43.10) Post traumatic stress disorder per history provided by patient 311 (F32.9) unspecified depressive disorder Impression/Plan: Patient is recommended for continued IVC. Patient presented to the Emergency Department with Tylenol overdose. Patient has previous history with anxiety and suicidal ideation. Patient reports she stopped taking her medications (not recommended or monitored by her provider) in September because she was feeling better. Patient is unable or unwilling to identify trigger only stating she has financial stressors. Today patient again changed her consent permissions to her mother. Dr. Tuttle was consulted and the care and management of this patient; attending physician is in agreement with recommendations and disposition.
[2018-01-23] MEDS: DIPHENHYDRAMINE HCL 25 MG CAPSULE PO PRN (20:10)
[2018-01-24] MEDS: RINGERS SOLUTION,LACTATED 1,000 ML IV PRN ×3 (00:37→16:18)
[2018-01-24 06:49] LABS: HEMATOCRIT 42.1 % (36.0-47.0); HEMOGLOBIN 14.5 g/dL (12.0-15.5); MEAN CORPUSCULAR HGB CONC 34.4 g/dL (32.0-36.0); MEAN CORPUSCULAR VOLUME 93 fl (80-97); PLATELET COUNT 172 10^3/uL (150-450); RED BLOOD COUNT 4.53 10^6/uL (3.72-5.28); RED CELL DISTRIBUTION WIDTH 13.7 % (11.5-14.0); WHITE BLOOD COUNT 6.2 10^3/uL (4.0-10.5)
[2018-01-24 07:11] LABS: ALANINE AMINOTRANSFERASE 663 U/L (9-52); ALKALINE PHOSPHATASE 40 U/L (38-126); ANION GAP 11 (5-19); ASPARTATE AMINO TRANSFERASE 267 U/L (14-36); BILIRUBIN,DIRECT 0.4 mg/dL (0.0-0.4); BILIRUBIN,TOTAL 0.6 mg/dL (0.2-1.3); BLOOD UREA NITROGEN 6 mg/dL (7-20); CALCIUM 8.7 mg/dL (8.4-10.2); CARBON DIOXIDE 25 mmol/L (22-30); CHLORIDE 106 mmol/L (98-107); GLUCOSE 94 mg/dL (75-110); POTASSIUM 3.9 mmol/L (3.6-5.0); TOTAL PROTEIN 5.9 g/dL (6.3-8.2)
[2018-01-24 07:32] LABS: ABSOLUTE MONOCYTES # (MANUAL) 0.2 10^3/uL (0.1-1.4); ABSOLUTE NEUTROPHILS# (MANUAL) 3.8 10^3/uL (1.7-8.2); BASOPHILS % (MANUAL) 0 % (0-2); EOSINOPHILS % (MANUAL) 3 % (0-6); LYMPHOCYTES % (MANUAL) 31 % (13-45); MONOCYTES % (MANUAL) 4 % (3-13); SEGMENTED NEUTROPHILS % (MAN) 61 % (42-78); TOTAL CELLS COUNTED 100
[2018-01-24 07:33] LABS: PLATELET COMMENT ADEQUATE; RBC MORPHOLOGY COMMENT NORMO-CYTIC/CHROMIC
[2018-01-24] MEDS: LIDOCAINE 5% (700 MG) TRANSDERMAL ADH..PATCH TP SCH (10:13)
[2018-01-24] MEDS: ENOXAPARIN SODIUM INJ 40 MG/0.4 ML DISP.SYRIN SUBCUT SCH (10:13)
[2018-01-24 11:56] LABS: INTERNATIONAL RATION (INR) 1.21; PROTHROMBIN TIME 15.9 SEC (11.4-15.4)
--- NOTE | 2018-01-24 15:30 | PDOC PROGRESS REPORT ---
Subjective Progress Note for:: 01/24/18 Subjective:: Patient is seen resting in bed comfortably. Patient is able to eat and drink well and she holds down. Her liver chemistries trending down markedly. In consultation with the poison center we discontinued her acetylcysteine. Reason For Visit: SUICIDE ATTEMPT,TYLENOL PM OVERDOSE WITH ELEVATED Physical Exam Vital Signs: Temp Pulse Resp BP Pulse Ox 97.8 F 89 18 122/76 96 01/24/18 11:46 01/24/18 14:00 01/24/18 11:46 01/24/18 11:46 01/24/18 11:46 Intake & Output 01/23/18 01/24/18 01/25/18 06:59 06:59 06:59 Intake Total 1000 2573 1989 Output Total 800 500 Balance 200 3 1989 Weight 86.9 kg 194.1 kg General appearance: PRESENT: no acute distress, well-developed, well-nourished Head exam: PRESENT: atraumatic, normocephalic Eye exam: PRESENT: conjunctiva pink, EOMI, PERRLA. ABSENT: scleral icterus Ear exam: PRESENT: normal external ear exam Mouth exam: PRESENT: moist, tongue midline Neck exam: ABSENT: carotid bruit, JVD, lymphadenopathy, thyromegaly Respiratory exam: PRESENT: clear to auscultation margi. ABSENT: rales, rhonchi, wheezes Cardiovascular exam: PRESENT: RRR. ABSENT: diastolic murmur, rubs, systolic murmur Pulses: PRESENT: normal dorsalis pedis pul Vascular exam: PRESENT: normal capillary refill GI/Abdominal exam: PRESENT: normal bowel sounds, soft. ABSENT: distended, guarding, mass, organolmegaly, rebound, tenderness Rectal exam: PRESENT: deferred Extremities exam: PRESENT: full ROM. ABSENT: calf tenderness, clubbing, pedal edema Neurological exam: PRESENT: alert, awake, oriented to person, oriented to place , oriented to time, oriented to situation, CN II-XII grossly intact. ABSENT: motor sensory deficit Psychiatric exam: PRESENT: appropriate affect, normal mood. ABSENT: homicidal ideation, suicidal ideation Skin exam: PRESENT: dry, intact, warm. ABSENT: cyanosis, rash Results Laboratory Results: 01/24/18 06:03 01/24/18 06:03 01/24/18 01/24/18 06:03 06:03 WBC 6.2 RBC 4.53 Hgb 14.5 Hct 42.1 MCV 93 MCH 32.0 MCHC 34.4 RDW 13.7 Plt Count 172 Seg Neutrophils % Not Reportable Lymphocytes % Not Reportable Monocytes % Not Reportable Eosinophils % Not Reportable Basophils % Not Reportable Absolute Neutrophils Not Reportable Absolute Lymphocytes Not Reportable Absolute Monocytes Not Reportable Absolute Eosinophils Not Reportable Absolute Basophils Not Reportable Sodium 142.0 Potassium 3.9 Chloride 106 Carbon Dioxide 25 Anion Gap 11 BUN 6 L Creatinine 0.54 Est GFR ( Amer) > 60 Est GFR (Non-Af Amer) > 60 Glucose 94 Calcium 8.7 Total Bilirubin 0.6 AST 267 H ALT 663 H Alkaline Phosphatase 40 Total Protein 5.9 L Albumin 3.0 L Assessment & Plan - Diagnosis (1) Tylenol overdose with suicidal intention Is this a current diagnosis for this admission?: Yes Plan: Gentle hydration and acetylcysteine (2) Drug-induced hepatitis Is this a current diagnosis for this admission?: Yes Plan: Due to Tylenol overdose. Management as #1 (3) Depression Qualifiers: Depression Type: major depressive disorder Major depression recurrence: unspecified whether recurrent Active/Remission status: currently active Major depression episode severity: severe Is this a current diagnosis for this admission?: Yes Plan: Management per psych.
[2018-01-24] MEDS ORDERED: LORAZEPAM INJ 2 MG/1 ML VIAL IV PRN (17:50)
[2018-01-24] MEDS: NICOTINE 14 MG/24 HR PATCH.TD24 TD SCH (18:02)
--- NOTE | 2018-01-24 19:43 | PSYCHOLOGICAL NOTE ---
Psych Note - Psych Note Psych Note: Reason for Consult: overdose Consent permissions: Mother, Iram, Friend, Keith [phone] Presents to ER, A&Ox4, with concern for SI and overdose attempt. Reports she took unknown amount of sleep aid, "its like advil PM" and drank 2 beers. Reports SI and depression last night, denying SI at this time. Clinician conducted check in with patient Patient provided the name of her friend, Keith, as a possible person that can be part of her support network. She discloses that she wants to move with her mom in [place] but not until her leases is up next October. She also stated it would be better for her daughter since she is enrolled here to finish out the year. She repeatedly asks to be discharged but is unable to provided thoughts on what she will do, what can help her or a support network. Patient continues to present with flat affect. Diagnosis: 309.81 (F43.10) Post traumatic stress disorder per history provided by patient 311 (F32.9) unspecified depressive disorder Impression/Plan: Patient is recommended for continued IVC. Patient presented to the Emergency Department with Tylenol overdose. Patient has previous history with anxiety and suicidal ideation. Patient reports she stopped taking her medications (not recommended or monitored by her provider) in September because she was feeling better. Patient is unable or unwilling to identify trigger only stating she has financial stressors. Today patient again changed her consent permissions to her friend Keith. She disclosed a possible plan of wanting to move to live with her mother in [place] yesterday but today she stats she would be unable to live with her mother until at least October of next year. Patient is not able to effectively problem-solve and has little insight. Dr. Tuttle was consulted and the care and management of this patient; attending physician is in agreement with recommendations and disposition.
[2018-01-24] MEDS: DIPHENHYDRAMINE HCL 25 MG CAPSULE PO PRN (22:05)
[2018-01-25 06:41] LABS: ALANINE AMINOTRANSFERASE 466 U/L (9-52); ALBUMIN 3.4 g/dL (3.5-5.0); ALKALINE PHOSPHATASE 62 U/L (38-126); ANION GAP 12 (5-19); ASPARTATE AMINO TRANSFERASE 128 U/L (14-36); BILIRUBIN,DIRECT 0.4 mg/dL (0.0-0.4); BILIRUBIN,TOTAL 0.5 mg/dL (0.2-1.3); BLOOD UREA NITROGEN 6 mg/dL (7-20); CALCIUM 9.2 mg/dL (8.4-10.2); CARBON DIOXIDE 25 mmol/L (22-30); CHLORIDE 106 mmol/L (98-107); GLUCOSE 103 mg/dL (75-110); POTASSIUM 3.9 mmol/L (3.6-5.0); SODIUM 142.5 mmol/L (137-145); TOTAL PROTEIN 6.1 g/dL (6.3-8.2)
[2018-01-25] MEDS: NICOTINE 14 MG/24 HR PATCH.TD24 TD SCH (09:37)
[2018-01-25] MEDS: RINGERS SOLUTION,LACTATED 1,000 ML IV PRN ×2 (09:38→15:54)
[2018-01-25] MEDS: LIDOCAINE 5% (700 MG) TRANSDERMAL ADH..PATCH TP SCH (09:38)
[2018-01-25] MEDS: ENOXAPARIN SODIUM INJ 40 MG/0.4 ML DISP.SYRIN SUBCUT SCH (09:38)
--- NOTE | 2018-01-25 10:02 | PDOC PROGRESS REPORT ---
Subjective Progress Note for:: 01/25/18 Subjective:: I seen patient resting in bed comfortably and watching TV. She is awake alert and oriented she does not have any new complaint. Her vital signs are within normal limits. She is eating and drinking well. I reviewed her labs and there is remarkable improvement with regard to her liver chemistries her AST was 1322 now 128 and her ALT was 05/29/1988 now it is 446. Patient is medically stable and ready for discharge. Reason For Visit: SUICIDE ATTEMPT,TYLENOL PM OVERDOSE WITH ELEVATED Physical Exam Vital Signs: Temp Pulse Resp BP Pulse Ox 98.8 F 83 15 124/76 96 01/25/18 07:17 01/25/18 07:17 01/25/18 07:17 01/25/18 07:17 01/25/18 07:17 Intake & Output 01/24/18 01/25/18 01/26/18 06:59 06:59 06:59 Intake Total 2573 5214 Output Total 500 Balance 2073 5214 Weight 194.1 kg General appearance: PRESENT: no acute distress, well-developed, well-nourished Head exam: PRESENT: atraumatic, normocephalic Eye exam: PRESENT: conjunctiva pink, EOMI, PERRLA. ABSENT: scleral icterus Ear exam: PRESENT: normal external ear exam Mouth exam: PRESENT: moist, tongue midline Neck exam: ABSENT: carotid bruit, JVD, lymphadenopathy, thyromegaly Respiratory exam: PRESENT: clear to auscultation margi. ABSENT: rales, rhonchi, wheezes Cardiovascular exam: PRESENT: RRR. ABSENT: diastolic murmur, rubs, systolic murmur Pulses: PRESENT: normal dorsalis pedis pul Vascular exam: PRESENT: normal capillary refill GI/Abdominal exam: PRESENT: normal bowel sounds, soft. ABSENT: distended, guarding, mass, organolmegaly, rebound, tenderness Rectal exam: PRESENT: deferred Extremities exam: PRESENT: full ROM. ABSENT: calf tenderness, clubbing, pedal edema Neurological exam: PRESENT: alert, awake, oriented to person, oriented to place , oriented to time, oriented to situation, CN II-XII grossly intact. ABSENT: motor sensory deficit Psychiatric exam: PRESENT: appropriate affect, normal mood. ABSENT: homicidal ideation, suicidal ideation Skin exam: PRESENT: dry, intact, warm. ABSENT: cyanosis, rash Results Laboratory Results: 01/24/18 06:03 01/25/18 05:37 01/25/18 05:37 Sodium 142.5 Potassium 3.9 Chloride 106 Carbon Dioxide 25 Anion Gap 12 BUN 6 L Creatinine 0.55 Est GFR ( Amer) > 60 Est GFR (Non-Af Amer) > 60 Glucose 103 Calcium 9.2 Total Bilirubin 0.5 AST 128 H ALT 466 H Alkaline Phosphatase 62 Total Protein 6.1 L Albumin 3.4 L Assessment & Plan - Diagnosis (1) Tylenol overdose with suicidal intention Is this a current diagnosis for this admission?: Yes Plan: Gentle hydration and acetylcysteine (2) Drug-induced hepatitis Is this a current diagnosis for this admission?: Yes Plan: Her liver chemistries are improving remarkably. (3) Depression Qualifiers: Depression Type: major depressive disorder Major depression recurrence: unspecified whether recurrent Active/Remission status: currently active Major depression episode severity: severe Is this a current diagnosis for this admission?: Yes Plan: Management per psych.
--- NOTE | 2018-01-25 16:36 | PSYCHOLOGICAL NOTE ---
Psych Note - Psych Note Psych Note: Reason for Consult: overdose Consent permissions: Mother, Iram, Friend, Keith [phone] Presents to ER, A&Ox4, with concern for SI and overdose attempt. Reports she took unknown amount of sleep aid, "its like advil PM" and drank 2 beers. Reports SI and depression last night, denying SI at this time. 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 He discloses the patient was telling him she wanted to go home however he asked if she was sure she was ready. He reports that he knows her finances are overwhelming her. He disclosed that he knows that she needs health and thinks that she may suffer from PTSD and has tried to get her to go to the [facility] for assistance however she has refused. He disclosed that he has been helping with patient's daughter is concerned that she is not in school. Patient moved over the summer and went to enroll her daughter in [employer] but was told that she had to go to the school board however she ended up here at the hospital before she could do it. He reports that he does not have power of business attorney is unable to assist in getting the patient enrolled stating "it is inconvenience to me if I drive all the way out there and used gas being told I cannot do anything he just can get me angry. He reports that he has enough to worry about on his own plate to worry about her plate at the patient "needs to get her life on track." He continued to report that he thinks the patient needs to be monitored as he is concerned about the patient's mental health well-being. Clinician conducted check in with patient Patient disclosed that she was hoping to be able to go home however upon discovering that she would not be she stated that she can take everything care of everything herself. She reports that she needs to work. Clinician asked about her daughter's enrollment status patient then started to say that she needed to be discharged so she can enroll her daughter. Clinician notes this is the first time the patient ever even acknowledged there was an issue with her daughter's enrollment status. She reports that when she went to [facility] she was told that she had to go to the board of education to switch the enrollment from [employer]. She confirms that she moved in September timeframe and just drove her daughter to school on the end of the school year last year but decided that the drive was too much and had to enroll her in [employer]. After several minutes the patient consented the clinician to contact her friend Keri to see if she would be able to allow her daughter to stay with her family so she can go to school at [employer]. Patient is still presenting flat. No medication recommendations at this time Diagnosis: 309.81 (F43.10) Post traumatic stress disorder per history provided by patient 311 (F32.9) unspecified depressive disorder Impression/Plan: Patient is recommended for continued IVC. Patient presented to the Emergency Department with Tylenol overdose. Patient has previous history with anxiety and suicidal ideation. Patient reports she stopped taking her medications (not recommended or monitored by her provider) in September because she was feeling better. Patient is unable or unwilling to identify trigger only stating she has financial stressors. Patient's friend Keith is unable to be part of the patient's support network. Patient was able to identify calling Keri to possibly assist in getting her daughter to school (back to [employer] where she is currently enrolled). Patient is not able to effectively problem- solve and has little insight,she has no identifiable support network, is a with previous bouts of significant suicidal ideation, has been off medication and been unable to restart, with continued flat affect. [facility] Tuttle was consulted and the care and management of this patient; attending physician is in agreement with recommendations and disposition.
[2018-01-25] MEDS: DIPHENHYDRAMINE HCL 25 MG CAPSULE PO PRN (23:23)
[2018-01-26] MEDS: RINGERS SOLUTION,LACTATED 1,000 ML IV PRN (08:07)
[2018-01-26] MEDS: ENOXAPARIN SODIUM INJ 40 MG/0.4 ML DISP.SYRIN SUBCUT SCH (10:17)
[2018-01-26] MEDS: NICOTINE 14 MG/24 HR PATCH.TD24 TD SCH (10:18)
[2018-01-26] MEDS: LIDOCAINE 5% (700 MG) TRANSDERMAL ADH..PATCH TP SCH (10:21)
[2018-01-26 10:36] LABS: ALANINE AMINOTRANSFERASE 333 U/L (9-52); ALBUMIN 3.5 g/dL (3.5-5.0); ALKALINE PHOSPHATASE 67 U/L (38-126); ANION GAP 13 (5-19); ASPARTATE AMINO TRANSFERASE 100 U/L (14-36); BILIRUBIN,DIRECT 0.3 mg/dL (0.0-0.4); BILIRUBIN,TOTAL 0.5 mg/dL (0.2-1.3); BLOOD UREA NITROGEN 5 mg/dL (7-20); CALCIUM 9.6 mg/dL (8.4-10.2); CARBON DIOXIDE 25 mmol/L (22-30); CHLORIDE 104 mmol/L (98-107); GLUCOSE 116 mg/dL (75-110); POTASSIUM 3.9 mmol/L (3.6-5.0); SODIUM 141.8 mmol/L (137-145); TOTAL PROTEIN 6.5 g/dL (6.3-8.2)
--- NOTE | 2018-01-26 12:05 | PDOC PROGRESS REPORT ---
Subjective Progress Note for:: 01/26/18 Subjective:: I seen patient while crying resting in bed. When I ask her why she is crying, she tells me "I want to go home". Her liver chemistry is trending down remarkably. Patient has been awaiting transfer to [place]. Reason For Visit: SUICIDE ATTEMPT,TYLENOL PM OVERDOSE WITH ELEVATED Physical Exam Vital Signs: Temp Pulse Resp BP Pulse Ox 98.5 F 86 18 120/81 97 01/26/18 07:26 01/26/18 07:26 01/26/18 07:26 01/26/18 07:26 01/26/18 07:26 Intake & Output 01/25/18 01/26/18 01/27/18 06:59 06:59 06:59 Intake Total 5214 1982 Balance 5214 1982 Weight 88.2 kg General appearance: PRESENT: no acute distress, well-developed, well-nourished Head exam: PRESENT: atraumatic, normocephalic Eye exam: PRESENT: conjunctiva pink, EOMI, PERRLA. ABSENT: scleral icterus Ear exam: PRESENT: normal external ear exam Mouth exam: PRESENT: moist, tongue midline Neck exam: ABSENT: carotid bruit, JVD, lymphadenopathy, thyromegaly Respiratory exam: PRESENT: clear to auscultation margi. ABSENT: rales, rhonchi, wheezes Cardiovascular exam: PRESENT: RRR. ABSENT: diastolic murmur, rubs, systolic murmur Pulses: PRESENT: normal dorsalis pedis pul Vascular exam: PRESENT: normal capillary refill GI/Abdominal exam: PRESENT: normal bowel sounds, soft. ABSENT: distended, guarding, mass, organolmegaly, rebound, tenderness Rectal exam: PRESENT: deferred Extremities exam: PRESENT: full ROM. ABSENT: calf tenderness, clubbing, pedal edema Neurological exam: PRESENT: alert, awake, oriented to person, oriented to place , oriented to time, oriented to situation, CN II-XII grossly intact. ABSENT: motor sensory deficit Psychiatric exam: PRESENT: depressed Skin exam: PRESENT: dry, intact, warm. ABSENT: cyanosis, rash Results Laboratory Results: 01/24/18 06:03 01/26/18 09:15 01/26/18 09:15 Sodium 141.8 Potassium 3.9 Chloride 104 Carbon Dioxide 25 Anion Gap 13 BUN 5 L Creatinine 0.57 Est GFR ( Amer) > 60 Est GFR (Non-Af Amer) > 60 Glucose 116 H Calcium 9.6 Total Bilirubin 0.5 AST 100 H ALT 333 H Alkaline Phosphatase 67 Total Protein 6.5 Albumin 3.5 Assessment & Plan - Diagnosis (1) Tylenol overdose with suicidal intention Is this a current diagnosis for this admission?: Yes Plan: Gentle hydration and acetylcysteine (2) Drug-induced hepatitis Is this a current diagnosis for this admission?: Yes Plan: Her liver chemistries are improving remarkably. (3) Depression Qualifiers: Depression Type: major depressive disorder Major depression recurrence: unspecified whether recurrent Active/Remission status: currently active Major depression episode severity: severe Is this a current diagnosis for this admission?: Yes Plan: Management per psych.
--- NOTE | 2018-01-26 16:27 | PDOC DISCHARGE SUMMARY ---
General - Admit/Disc Date/PCP Admission Date/Primary Care Provider: 01/21/18 12:38 Discharge Date: 01/26/18 - Discharge Diagnosis (1) Tylenol overdose with suicidal intention Is this a current diagnosis for this admission?: Yes (2) Drug-induced hepatitis Is this a current diagnosis for this admission?: Yes (3) Depression Is this a current diagnosis for this admission?: Yes - Additional Information Resuscitation Status: Full Code Home Medications: No Home Medications 01/21/18 History of Present Illness History of Present Illness: JERILYN SALAS is a 37 year old female Who took an unknown, but large, amount of tylenol PM last night in an attempt to kill herself at about 10:00 pm last night.. This morning in the ED her Tylenol level was 38 and her LFT's were slightly elevated. The patient has a very flat affect and is largely non- communicative. Hospital Course Hospital Course: his is a 37 years old black female patient presented after she overdosed herself with Tylenol with suicidal intention. She denies past medical history of depression and she is to be on antidepressant medication but she stops taking by her own decision. Patient is being managed with IV fluids and acetylcysteine. Her liver enzymes are trending down remarkably today her AST is 100 and ALT 333. After discussion with the poison center I discontinued her acetylcysteine since her liver enzymes are trending down and her PT/INR is also within normal limits. This morning I seen patient resting in bed while crying. She says "I want to go home". Otherwise patient is clinically stable her vital signs are also within normal limits. Physical Exam Vital Signs: Temp Pulse Resp BP Pulse Ox 97.9 F 98 22 H 127/79 H 96 01/26/18 11:32 01/26/18 11:32 01/26/18 11:32 01/26/18 11:32 01/26/18 11:32 Intake & Output 01/25/18 01/26/18 01/27/18 06:59 06:59 06:59 Intake Total 5214 1982 Balance 521982 Weight 88.2 kg General appearance: PRESENT: no acute distress, well-developed, well-nourished Head exam: PRESENT: atraumatic, normocephalic Eye exam: PRESENT: conjunctiva pink, EOMI, PERRLA. ABSENT: scleral icterus Ear exam: PRESENT: normal external ear exam Mouth exam: PRESENT: moist, tongue midline Neck exam: ABSENT: carotid bruit, JVD, lymphadenopathy, thyromegaly Respiratory exam: PRESENT: clear to auscultation margi. ABSENT: rales, rhonchi, wheezes Cardiovascular exam: PRESENT: RRR. ABSENT: diastolic murmur, rubs, systolic murmur Pulses: PRESENT: normal dorsalis pedis pul Vascular exam: PRESENT: normal capillary refill GI/Abdominal exam: PRESENT: normal bowel sounds, soft. ABSENT: distended, guarding, mass, organolmegaly, rebound, tenderness Rectal exam: PRESENT: deferred Extremities exam: PRESENT: full ROM. ABSENT: calf tenderness, clubbing, pedal edema Neurological exam: PRESENT: alert, awake, oriented to person, oriented to place , oriented to time, oriented to situation, CN II-XII grossly intact. ABSENT: motor sensory deficit Psychiatric exam: PRESENT: appropriate affect, normal mood. ABSENT: homicidal ideation, suicidal ideation Skin exam: PRESENT: dry, intact, warm. ABSENT: cyanosis, rash Results Laboratory Results: 01/24/18 06:03 01/26/18 09:15 01/26/18 09:15 Sodium 141.8 Potassium 3.9 Chloride 104 Carbon Dioxide 25 Anion Gap 13 BUN 5 L Creatinine 0.57 Est GFR ( Amer) > 60 Est GFR (Non-Af Amer) > 60 Glucose 116 H Calcium 9.6 Total Bilirubin 0.5 AST 100 H ALT 333 H Alkaline Phosphatase 67 Total Protein 6.5 Albumin 3.5 Qualifiers - * PATIENT BEING DISCHARGED WITH ANY OF THE FOLLOWING DIAGNOSIS: No
--- NOTE | 2018-01-26 16:46 | PSYCHOLOGICAL NOTE ---
Psych Note - Psych Note Psych Note: Reason for Consult: overdose Consent permissions: Mother, Iram, Friend, Keith [phone] Presents to ER, A&Ox4, with concern for SI and overdose attempt. Reports she took unknown amount of sleep aid, "its like advil PM" and drank 2 beers. Reports SI and depression last night, denying SI at this time. Diagnosis: 309.81 (F43.10) Post traumatic stress disorder per history provided by patient 311 (F32.9) unspecified depressive disorder Impression/Plan: Patient is recommended for continued IVC. Patient presented to the Emergency Department with Tylenol overdose. Patient has previous history with anxiety and suicidal ideation. Patient reports she stopped taking her medications (not recommended or monitored by her provider) in September because she was feeling better. Patient is unable or unwilling to identify trigger only stating she has financial stressors. Patient's friend Keith is unable to be part of the patient's support network. Patient was able to identify [facility] to possibly assist in getting her daughter to school (back to [employer] where she is currently enrolled). Patient is not able to effectively problem- solve and has little insight,she has no identifiable support network, is a with previous bouts of significant suicidal ideation, has been off medication and been unable to restart, with continued flat affect. [facility] has been requested. Dr. Tuttle was consulted and the care and management of this patient; attending physician is in agreement with recommendations and disposition.
[2018-01-26 18:25] VITALS: BP 136/103
--- NOTE | 2018-02-07 15:52 | PDOC TRANSFER SUMMARY ---
General Admission Date/PCP: 01/21/18 12:38 Resuscitation Status: Full Code - Transfer Diagnosis (1) Tylenol overdose with suicidal intention Is this a current diagnosis for this admission?: Yes (2) Drug-induced hepatitis Is this a current diagnosis for this admission?: Yes (3) Depression Is this a current diagnosis for this admission?: Yes - Transfer Medications Home Medications: No Home Medications 01/21/18 - Allergies Allergies/Adverse Reactions: No Known Allergies Allergy (Verified 01/21/18 09:46) Hospital Course Hospital Course: his is a 37 years old black female patient presented after she overdosed herself with Tylenol with suicidal intention. She denies past medical history of depression and she is to be on antidepressant medication but she stops taking by her own decision. Patient is being managed with IV fluids and acetylcysteine. Her liver enzymes are trending down remarkably today her AST is 100 and ALT 333. After discussion with the poison center I discontinued her acetylcysteine since her liver enzymes are trending down and her PT/INR is also within normal limits. This morning I seen patient resting in bed while crying. She says "I want to go home". Otherwise patient is clinically stable her vital signs are also within normal limits. Physical Exam Vital Signs: Temp Pulse Resp BP Pulse Ox 98.8 F 108 H 18 136/103 H 100 01/26/18 18:25 01/26/18 18:25 01/26/18 18:25 01/26/18 18:25 01/26/18 18:25 General appearance: PRESENT: no acute distress, well-developed, well-nourished Head exam: PRESENT: atraumatic, normocephalic Eye exam: PRESENT: conjunctiva pink, EOMI, PERRLA. ABSENT: scleral icterus Ear exam: PRESENT: normal external ear exam Mouth exam: PRESENT: moist, tongue midline Neck exam: ABSENT: carotid bruit, JVD, lymphadenopathy, thyromegaly Respiratory exam: PRESENT: clear to auscultation margi. ABSENT: rales, rhonchi, wheezes Cardiovascular exam: PRESENT: RRR. ABSENT: diastolic murmur, rubs, systolic murmur Pulses: PRESENT: normal dorsalis pedis pul Vascular exam: PRESENT: normal capillary refill GI/Abdominal exam: PRESENT: normal bowel sounds, soft. ABSENT: distended, guarding, mass, organolmegaly, rebound, tenderness Rectal exam: PRESENT: deferred Extremities exam: PRESENT: full ROM. ABSENT: calf tenderness, clubbing, pedal edema Neurological exam: PRESENT: alert, awake, oriented to person, oriented to place , oriented to time, oriented to situation, CN II-XII grossly intact. ABSENT: motor sensory deficit Psychiatric exam: PRESENT: appropriate affect, normal mood. ABSENT: homicidal ideation, suicidal ideation Skin exam: PRESENT: dry, intact, warm. ABSENT: cyanosis, rash Results Laboratory Results: 01/24/18 06:03 01/26/18 09:15
== END 2018-01-26 18:29 | DRG 918 ==
LOC: ER 09:14 → EH 12:38 → UNDOADMIN 12:52 → EH 12:52 → ICU 01-22 23:02 → 3S 01-23 16:23
PROVIDERS: ADMIT Internal Medicine; ATTEND Internal Medicine
DX: T39.1X2A Poisoning by 4-Aminophenol derivatives, intentional self-harm, initial encounter (principal); Y92.9 Unspecified place or not applicable; K75.89 Other specified inflammatory liver diseases; F32.9 Major depressive disorder, single episode, unspecified; F41.9 Anxiety disorder, unspecified; Z90.49 Acquired absence of other specified parts of digestive tract; F17.200 Nicotine dependence, unspecified, uncomplicated
CPT/HCPCS: 36415; 80048; 80053; 80076; 80307; 81001; 83690; 83735; 84703; 85025; 85610; 85730; 93005; 93010; 96361; 96365; 96366; 96375; 96376; 99285; J0132; J1650; J2060; J2270; J2405; J3490; J7030; J7060; J7120